=== PATIENT | female | born 1960 | race Caucasian/White ===

== ENCOUNTER 2017-03-16 12:56 | Outpatient (CLI) | payer OTHER ==
--- NOTE | 2017-03-17 15:55 | Mammography Report ---
DATE OF SERVICE: 03/16/2017 DIGITAL SCREENING MAMMOGRAM: 03/16/2017 CLINICAL INDICATION: A 56-year-old, for screening. COMPARISON: 10/2011, 03/2010, 11/2008. TECHNIQUE: Routine CC and MLO projections were obtained of the breasts. Bilateral laterally exaggerated craniocaudal views. FINDINGS: Parenchymal tissue within both breasts is heterogeneously dense, which may lower the sensitivity of mammography; however, there are no dominant masses, suspicious microcalcifications, or secondary signs of malignancy. In comparison to the previous studies, there are no significant changes. ASSESSMENT: NO MAMMOGRAPHIC EVIDENCE OF MALIGNANCY. NO SIGNIFICANT INTERVAL CHANGES. RECOMMENDATION: Screening mammography is recommended annually. BIRADS category 1 - negative. STANDARD QUALIFYING STATEMENTS: 1. This examination was reviewed with the aid of Computed-Aided Detection (CAD). 2. A negative or benign imaging report should not delay biopsy if clinically suspicious findings are present. Consider surgical consultation if warranted. More than 5% of cancers are not identified by imaging. 3. Dense breasts may obscure an underlying neoplasm. TD: 03/17/2017 16:53
== END 2017-03-16 12:57 | disposition home or self-care (01) ==
LOC: DI 12:56
PROVIDERS: ATTEND Obstetrics & Gynecology
DX: Z12.31 Encounter for screening mammogram for malignant neoplasm of breast (principal)
CPT/HCPCS: 77067

== ENCOUNTER 2022-02-11 14:51 | Outpatient (CLI) | payer OTHER ==
--- NOTE | 2022-02-12 11:57 | Mammography Report ---
BILATERAL DIGITAL SCREENING MAMMOGRAM 3D/2D: 02/11/2022 CLINICAL: Routine screening. Comparison is made to exams dated: 03/16/2017 mammogram and 03/27/2011 mammogram - [facility]. Both breasts are almost entirely fatty (category a/<25% glandular tissue). There is possible architectural distortion with an indistinct margin in the right breast at 6 o'clock middle depth. No other significant masses, calcifications, or other findings are seen in either breast. IMPRESSION: INCOMPLETE: NEEDS ADDITIONAL IMAGING EVALUATION The possible architectural distortion in the right breast is indeterminate. A diagnostic mammogram a nd ultrasound is recommended. Based on the Tyrer Cuzick model (a risk assessment model) the patients lifetime risk is 3.4% and her 10 year risk is 1.4%. According to the ACR, ACS, and NCCN guidelines, an annual breast MRI exam rafa g with mammogram is recommended if the patients lifetime risk is 20% or greater. This exam was interpreted at Station ID: [id number]. NOTE: For mammograms, a report in lay terms will be sent to the patient. Approximately 15% of breast malignancies will not be visualized mammographically. In the management of a palpable breast mass, a negative mammogram must not discourage biopsy of a clinically suspicious lesion. Electronically Signed By: Yobani Tejeda M.D., jr/demetri:02/11/2022 16:03:16 ACR BI-RADS Category 0: Incomplete 3340F PARENCHYMAL PATTERN: (F) - The breast(s) demonstrate(s) diffuse fatty replacement. BI-RADS CATEGORY: (0) - 0 Mammo and US [id number] Immediate follow-up LATERALITY: (B)
== END 2022-02-11 14:52 | disposition home or self-care (01) ==
LOC: DI.N 14:51
DX: Z12.31 Encounter for screening mammogram for malignant neoplasm of breast (principal)

== ENCOUNTER 2022-02-20 07:49 | Outpatient (CLI) | payer OTHER ==
--- NOTE | 2022-02-20 10:44 | Ultrasound Report ---
LIMITED ULTRASOUND OF RIGHT BREAST: 02/20/2022 CLINICAL: Patient returns today to evaluate a focal asymmetry in the right breast. Patient returns to day to evaluate an architectural distortion in the right breast. Comparison is made to exams dated: 02/20/2022 mammogram, 02/11/2022 mammogram, 03/16/2017 mammogram, and 03/27/2011 mammogram - [facility]. Color flow ultrasound of the right breast 6 o'clock, 10-11 o'clock, and retroareolar regions was perf ormed. Gonzalez scale images of the real-time examination were reviewed. No significant abnormalities were seen sonographically in the right breast. Specifically, no finding to correspond to the patient's 6:00 architectural distortion (which resolved with special views), or the asymmetry seen 11:00 anteriorly. IMPRESSION: PROBABLY BENIGN A follow-up right mammogram in 6 months is recommended to demonstrate stability of the area of resolv ed architectural distortion and the increased asymmetry at 11:00. Findings and recommendations were conveyed to the patient at time of exam. This exam was interpreted at Station ID: [id number]. Electronically Signed By: Mara dean/:02/20/2022 09:08:09 Ultrasound BI-RADS: 3 Probably benign BI-RADS CATEGORY: (3) - 3 Mammogram [id number] 6 month follow-up LATERALITY: (R)
--- NOTE | 2022-02-20 10:44 | Mammography Report ---
UNILATERAL RIGHT DIGITAL DIAGNOSTIC MAMMOGRAM 3D/2D WITH SPOT COMPRESSION: 02/20/2022 CLINICAL: Patient returns today to evaluate an architectural distortion in the right breast. Comparison is made to exams dated: 03/16/2017 mammogram, 02/11/2022 mammogram, and 03/27/2011 mammogram - [facility]. The right breast is heterogeneously dense, which may obscure small masses (category c / 51-75% glandu lar tissue). The possible architectural distortion with an indistinct margin in the right breast at 6 o'clock midd le depth is no longer seen and most likely is fibroglandular tissue or fibrosis. This is not seen in additional views. Additionally, there is a 9 mm round equal density focal asymmetry with an obscured and microlobulated margin in the right breast at 11 o'clock anterior depth. This is seen in additional views. This is increased in size. No other significant masses or calcifications are seen in the breast. IMPRESSION: INCOMPLETE: NEEDS ADDITIONAL IMAGING EVALUATION An ultrasound is recommended to confirm resolution of the architectural distortion in the right breas t at 6 o'clock middle depth. The 9 mm round equal density focal asymmetry in the right breast at 11 o'clock anterior depth most li gely is a cyst, clustered cysts, or a fibroadenoma but remains indeterminate. An ultrasound is florecita mmended. Ultrasound of both areas was performed immediately following this exam. Based on the Tyrer Cuzick model (a risk assessment model) the patients lifetime risk is 7.4% and her 10 year risk is 3.2%. According to the ACR, ACS, and NCCN guidelines, an annual breast MRI exam rafa g with mammogram is recommended if the patients lifetime risk is 20% or greater. This exam was interpreted at Station ID: [id number]. NOTE: For mammograms, a report in lay terms will be sent to the patient. Approximately 15% of breast malignancies will not be visualized mammographically. In the management of a palpable breast mass, a negative mammogram must not discourage biopsy of a clinically suspicious lesion. Electronically Signed By: Mara dean/:02/20/2022 08:24:17 ACR BI-RADS Category 0: Incomplete 3340F PARENCHYMAL PATTERN: (D) - The breast(s) demonstrate(s) heterogeneously dense fibroglandular gregoria randall. BI-RADS CATEGORY: (0) - 0 Ultrasound [id number] Immediate follow-up LATERALITY: (B)
== END 2022-02-20 07:50 | disposition home or self-care (01) ==
LOC: DI 07:49
PROVIDERS: ATTEND Family Medicine
DX: R92.8 Other abnormal and inconclusive findings on diagnostic imaging of breast (principal)

== ENCOUNTER 2022-09-21 12:32 | Outpatient (CLI) | payer OTHER ==
--- NOTE | 2022-09-22 11:22 | Mammography Report ---
UNILATERAL RIGHT DIGITAL DIAGNOSTIC MAMMOGRAM 3D/2D: 09/21/2022 CLINICAL: Patient returns for a 6 month follow up of the right breast. Comparison is made to exams dated: 02/20/2022 mammogram, 02/11/2022 mammogram, and 03/16/2017 mammogr am - [facility]. The right breast is heterogeneously dense, which may obscure small masses (category c / 51-75% glandu lar tissue). The focal asymmetry in the right breast at 11 o'clock anterior depth seen previously is no longer see n. No other significant masses or calcifications are seen in the breast. IMPRESSION: NEGATIVE There is no mammographic evidence of malignancy. Return to annual mammogram screening schedule is rec ommended. Based on the Tyrer Cuzick model (a risk assessment model) the patients lifetime risk is 7.2% and her 10 year risk is 3.2%. According to the ACR, ACS, and NCCN guidelines, an annual breast MRI exam rafa g with mammogram is recommended if the patients lifetime risk is 20% or greater. This exam was interpreted at Station ID: [id number]. NOTE: For mammograms, a report in lay terms will be sent to the patient. Approximately 15% of breast malignancies will not be visualized mammographically. In the management of a palpable breast mass, a negative mammogram must not discourage biopsy of a clinically suspicious lesion. Electronically Signed By: Robyn Ren M.D. lk/:09/21/2022 12:57:49 ACR BI-RADS Category 1: Negative 3341F PARENCHYMAL PATTERN: (D) - The breast(s) demonstrate(s) heterogeneously dense fibroglandular gregoria randall. BI-RADS CATEGORY: (1) - 1 Mammogram [id number] return to screening LATERALITY: (B)
== END 2022-09-21 12:33 | disposition home or self-care (01) ==
LOC: DI 12:32
PROVIDERS: ATTEND Physician Assistant Medical
DX: R92.8 Other abnormal and inconclusive findings on diagnostic imaging of breast (principal)

== ENCOUNTER 2022-12-01 11:01 | Day surgery (SDC) | payer OTHER ==
[~2022-12-01 11:01] MED LIST: PROPOFOL 500 MG/50 ML 500 MG/50 ML VIAL ONE
[2022-12-01 11:21] VITALS: O2SAT 100
--- NOTE | 2022-12-01 11:28 | ANESTHESIA ---
Pre-Anesthesia VS, & Labs - Diagnosis screening - Procedure colonoscopy Vital Signs: Temp Pulse Resp BP Pulse Ox O2 Flow Rate 36.5 C 89 15 1210/74 H 100 12/01/22 11:16 12/01/22 11:16 12/01/22 11:16 12/01/22 11:16 12/01/22 11:16 Height: 5 ft 3 in Weight (kg): 52.2 kg Body Mass Index: 20.3 BMI Classification: Normal - NPO >8 hours - Is Patient ?: Yes, No - Lab Results Lab results reviewed: Yes Home Medications and Allergies Allergies/Adverse Reactions: Allergies Allergy/AdvReac Type Severity Reaction Status Date / Time No Known Drug Allergies Allergy Verified 11/30/22 13:30 Anes History & Medical History - Anesthetic History Anesthesia Complications: reports: No previous complications Family history of Anesthesia Complications: Denies Family history of Malignant Hyperthermia: Denies - Medical History Cardiovascular: reports: None Pulmonary: reports: None Gastrointestinal: reports: None Urinary: reports: None Neuro: reports: None Musculoskeletal: reports: None Endocrine/Autoimmune: reports: None Blood Disorders: reports: None Skin: reports: None Smoking Status: Never smoker Psychosocial: reports: No issues indicated - Surgical History Gynecologic: reports: Tubal ligation Exam General: Alert, Oriented x3, Cooperative Dental: WNL Mouth Openin Fingerbreadth Neck Mobility: Normal Mallampati classification: II Thyromental Distance: 4-6 cm Respiratory: Lungs clear Cardiovascular: Regular rate Plan Anesthesia Type: General, MAC Consent for Procedure(s) Verified and Reviewed: Yes Code Status: Attempt Resuscitation ASA classification: 1-Healthy patient Is this case an emergency?: No
[2022-12-01] MEDS ORDERED: LACTATED RINGERS 1,000 ML IV ONE (11:32)
[2022-12-01] MEDS ORDERED: GLYCOPYRROLATE 1 MG/5 ML VIAL ONE (12:06)
[2022-12-01] MEDS ORDERED: PROPOFOL 200 MG/20 ML VIAL IVP ONE (12:22)
[2022-12-01] MEDS ORDERED: LACTATED RINGERS 100 ML IV ONE ×2 (12:31)
[2022-12-01 12:54] VITALS: BP 111/70
--- NOTE | 2022-12-01 14:50 | ANESTHESIA POST OP EVALUATION ---
Anesthesia Post Eval - Post Anesthesia Eval Vitals: Last Vital Signs Temp 36.1 C L 12/01/22 12:46 Pulse 95 12/01/22 12:46 Resp 15 12/01/22 12:46 BP 111/70 12/01/22 12:46 Pulse Ox 100 12/01/22 12:46 O2 Flow Rate CV Function Including HR & BP: Stable Pain Control: Satisfactory Nausea & Vomiting: Negative Mental Status: Baseline Respiratory Status: Airway Patent Hydration Status: Satisfactory Anesthesia Complications: None
== END 2022-12-01 11:02 | disposition home or self-care (01) ==
LOC: SDS 11:01
PROVIDERS: ATTEND Surgery
DX: Z12.11 Encounter for screening for malignant neoplasm of colon (principal)
CPT/HCPCS: 45378; J7120